=== PATIENT | female | born 2005 | race Caucasian/White ===

== ENCOUNTER 2023-03-03 11:49 | Emergency (ER) | payer OTHER, SELFPAY ==
--- NOTE | ~2023-03-03 | US_ITS ---
EXAMINATION: US PELVIS CLINICAL INFORMATION: Left-sided pelvic pain. Rule out torsion. COMPARISON: None available. TECHNIQUE: Ultrasound of the pelvis is performed using transabdominal transducer along with Doppler. Transvaginal imaging was not performed due to patient declining it. FINDINGS: Uterus: The uterus is anteverted and anteflexed and measures 8.1 x 2.7 x 4.1 cm. The double wall endometrial thickness is 4 mm. The uterus is smooth in contour and has normal myometrial echogenicity. No visible fibroid. Adnexa: Both ovaries are visualized. There is normal color flow to the adnexa. There is no ovarian torsion. There is a small amount of fluid seen within the cul-de-sac. Right ovary measures 2.0 x 2.1 x 1.8 cm. Volume of 4 mL. No abnormal mass. Left ovary measures 3.0 x 2.3 x 3.1 cm. Volume of 11.4 mL. No abnormal mass. Multiple follicular cysts are present. Follow-up for these is not required. US/US pelvic ovarian doppler IMPRESSION: No evidence of ovarian torsion.
--- NOTE | ~2023-03-03 | US_ITS ---
EXAMINATION: US PELVIS CLINICAL INFORMATION: Left-sided pelvic pain. Rule out torsion. COMPARISON: None available. TECHNIQUE: Ultrasound of the pelvis is performed using transabdominal transducer along with Doppler. Transvaginal imaging was not performed due to patient declining it. FINDINGS: Uterus: The uterus is anteverted and anteflexed and measures 8.1 x 2.7 x 4.1 cm. The double wall endometrial thickness is 4 mm. The uterus is smooth in contour and has normal myometrial echogenicity. No visible fibroid. Adnexa: Both ovaries are visualized. There is normal color flow to the adnexa. There is no ovarian torsion. There is a small amount of fluid seen within the cul-de-sac. Right ovary measures 2.0 x 2.1 x 1.8 cm. Volume of 4 mL. No abnormal mass. Left ovary measures 3.0 x 2.3 x 3.1 cm. Volume of 11.4 mL. No abnormal mass. Multiple follicular cysts are present. Follow-up for these is not required. US/US pelvic complete IMPRESSION: No evidence of ovarian torsion.
[2023-03-03 11:52] VITALS: BP 137/90; PULSE 116; RESP 18; TEMP 36.8; O2SAT 98; BMI 23.8
--- NOTE | 2023-03-03 11:53 | ED_ITS ---
HPI - Abdominal Pain General Chief Complaint: Abdominal Pain Stated Complaint: Ovary pain Time Seen by Provider: 03/03/23 13:11 Source: patient and family (Mother) Limitations: no limitations History of Present Illness HPI narrative: 17-year-old female who presents emergency department for evaluation of left lower quadrant/pelvic pain x2 days. The patient states that the pain came on gradually and has been constant but waxes and wanes in intensity since onset. She states that the pain feels like a pulling sensation. The pain got worse last night. She states the pain is 6-7 out 10 at the time of presentation. This is 1st episode of this type of pain. She did not take any pain medications at home. She denied fever, chills, sore throat, cough, chest pain, shortness of breath. She did have associated nausea with no vomiting. She denied frequency, urgency or dysuria. She denied diarrhea, black stools or bloody stools. The patient states that she was getting regular menstrual periods up until July of 2022 when her periods became irregular. She states that her last menstrual period was in October of 2022. She states that this. Was much heavier than her usual periods. She states she is not sexually active. She has not noticed any vaginal discharge. Related Data Allergies Allergy/AdvReac Type Severity Reaction Status Date / Time No Known Allergies Allergy Unverified 06/26/20 17:14 [No Known Allergies*] Review of Systems Review of Systems Yes all other systems are reviewed and are negative [facility] Past Medical History [facility] Narrative: Social history: She denies tobacco use. She denies alcohol use. She denies drug use. She denies being sexually active. Social History Social History Alcohol intake: never Smoked in Last 30 Days: No Use of substances other than those prescribed or required for medical reasons: No Advance Directives: No Advance Directives Information Provided: Yes Physical Exam ED Vital Signs: Vital Signs - 24 hr 03/03/23 11:52 Temperature 98.3 F Pulse Rate 116 H Respiratory Rate 18 Blood Pressure 137/90 H Pulse Oximetry 98 Oxygen Delivery Method Room Air BMI result Body Mass Index 23.8 Const Other: Awake, alert, female patient, pleasant, cooperative no distress, answers all questions appropriately [facility] Head: Yes normal to inspection, Yes normocephalic and Yes atraumatic Ears: external ears normal General nose exam: Normal external nose present Face and sinus: Yes normal facial exam Mouth: Normal oral and palatal mucosa present Throat: Yes posterior oropharynx normal Eyes General: appearance normal, both eyes and all related structures Pupils: Equal, round and reactive pupils present Neck Neck: Yes normal visual inspection, Yes no lymphadenopathy, Yes trachea midline and Yes supple Chest Chest palpation & inspection: normal inspection of the chest and normal palpation of entire chest wall Resp Effort & Inspection: normal respiratory effort and able to speak in complete sentences Auscultation: clear to auscultation bilaterally Cardio Rate: regular rate Rhythm: regular rhythm Heart sounds: S1 normal heart sound present, S2 normal heart sound present and no murmurs GI Inspection: Yes normal to inspection Palpation (GI): Soft to palpation, Tenderness to palpation present (GI) in the LLQ (Today mild) and other (Left lower pelvic tenderness, mild) and no guarding Auscultation: normal bowel sounds General: Yes no CVA tenderness Back/Spine/Pelvis Back: no CVA tenderness Skin General skin exam: no rashes or lesions noted Neuro Cranial nerves: Yes CN's II-XII intact bilaterally and Yes Equal, round and reactive pupils present Cognition (Neuro): normal cognition Motor exam (neuro): 5/5 motor strength present throughout Extrem General: Yes normal to inspection Psych Appearance: grossly normal Speech and movement: Normal speech and movement present Affect: normal affect Attitude: cooperative Course Course Course Narrative: This is a rapid medical exam. Deferred additional HPI, ROS, PE to primary provider. 17 yo female with history of asthma, anxiety here with complaints of left lower abdominal pain w/ cramping, nausea yesterday. No urinary symptoms, constipation, diarrhea, vaginal discharge. Has had irregular menses since August, absent period for 4 months, not s exually active. Will obtain labs, UA, pelvic US. Medical Decision Making Medical Decision Making MDM Narrative: 17-year-old female who presents emergency department for evaluation of left lower quadrant/pelvic pain x2 days. Patient had associated nausea with no other significant symptoms. The patient has had a change in her menses over the last 6 months with her last normal menstrual period being October 2022. Patient is not sexually active. Exam did reveal left lower quadrant and left pelvic tenderness. The following tests were ordered: CBC, CMP, urine test, urinalysis, ultrasound of the pelvis and transvaginal ultrasound to rule out torsion/ovarian cyst. My interpretation patient's laboratory evaluation is as follows: CBC, CMP, urinalysis, urine test all normal. Duplex ultrasound of the patient's ovaries revealed multiple follicular cysts in the left ovary with no significant ovarian cyst or evidence for torsion. This time I do not have a clear etiology for the patient's pain, it is possible she may have had an ovarian cyst that ruptured. I did discuss this with the patient and the patient's mother. Patient was advised to take ibuprofen 40 mg 3 times a day for the next 4 days and then as needed for pain, she is also advised to take extra-strength Tylenol 500 mg every 6 hours as needed for pain. She will be referred to our freezer laboratory technician to further workup or change in her menstrual periods. Differential Diagnosis Differential diagnosis includes but is not limited to ovarian cyst, ruptured ovarian cyst, hemorrhagic ovarian cyst, ovarian torsion, related pain Lab Data MDM Lab Attestation statement: I reviewed the patient's lab results. 03/03/23 12:14 03/03/23 12:14 Labs: Lab Results 03/03/23 03/03/23 03/03/23 Range/Units 12:12 12:12 12:14 WBC 7.1 (4.8-10.8) X10*3/uL RBC 4.84 (4.20-5.50) X10*6/uL Hgb 13.7 (12.0-16.0) g/dl Hct 41.0 (37.0-47.0) % MCV 84.7 (80.0-98.0) fL MCH 28.3 (27.0-33.0) pg MCHC 33.4 (31.0-35.0) g/dl RDW 11.9 (11.0-16.0) % Plt Count 207 (160-400) X10*3/uL MPV 10.3 (9.4-12.3) fL Immature Gran % (Auto) 0.1 (0.0-0.4) % Neut % (Auto) 57.8 (45-73) % Lymph % (Auto) 31.4 (20-40) % Crisp % (Auto) 6.6 (2-11) % Eos % (Auto) 3.5 (0-4) % Baso % (Auto) 0.6 (0-2) % Lymph # (Auto) 2.2 (1.2-4.9) X10*3/uL Crisp # (Auto) 0.5 (0.1-1.2) X10*3/uL Eos # (Auto) 0.3 (0.0-0.4) X10*3/uL Baso # (Auto) 0.0 (0.0-0.2) X10*3/uL Abs Immat Gran (auto) 0.01 (0.00-0.03) X10*3/uL Absolute Neuts (auto) 4.1 (2.0-8.3) x10*3/uL Absolute Nucleated RBC 0.000 (0.0-0.012) X10*3/uL Nucleated RBC % (auto) 0.0 (0.0-0.2) /100WBC Sodium (135-145) mmol/L Potassium (3.3-5.1) mmol/L Chloride (96-108) mmol/L Carbon Dioxide (22-29) mmol/L Anion Gap (12-20) BUN (9-16) mg/dL Creatinine (0.5-1.4) mg/dL Estim Creat Clear Calc Estimated GFR Random Glucose (60-115) mg/dL Calcium (8.4-10.2) mg/dL Total Bilirubin (0.0-1.0) mg/dL Direct Bilirubin (0.0-0.5) mg/dL AST (5-31) U/L ALT (0-31) U/L Alkaline Phosphatase (39-117) U/L Total Protein (6.5-8.0) g/dL Albumin (3.5-5.0) g/dL Urine Color Yellow Urine Appearance Cloudy Urine pH 8.0 (5.0-9.0) Ur Specific Lee 1.025 (1.005-1.025) Urine Protein Trace (Neg-Trace) mg/dL Urine Glucose (UA) Negative (Negative) mg/dL Urine Ketones Trace (Negative) mg/dL Urine Blood Negative (Negative) Urine Nitrite Negative (Negative) Ur Leukocyte Esterase Trace H (Negative) Urine RBC 0-2 (0-2) /HPF Urine WBC 0-5 (0-5) /HPF Ur Squamous Epith Cells 6-10 (0-2) /HPF Urine Bacteria 1+ (None Seen) Hyaline Casts 0-2 (0-2) /LPF Urine Test NEGATIVE (NEGATIVE) 03/03/23 Range/Units 12:14 WBC (4.8-10.8) X10*3/uL RBC (4.20-5.50) X10*6/uL Hgb (12.0-16.0) g/dl Hct (37.0-47.0) % MCV (80.0-98.0) fL MCH (27.0-33.0) pg MCHC (31.0-35.0) g/dl RDW (11.0-16.0) % Plt Count (160-400) X10*3/uL MPV (9.4-12.3) fL Immature Gran % (Auto) (0.0-0.4) % Neut % (Auto) (45-73) % Lymph % (Auto) (20-40) % Crisp % (Auto) (2-11) % Eos % (Auto) (0-4) % Baso % (Auto) (0-2) % Lymph # (Auto) (1.2-4.9) X10*3/uL Crisp # (Auto) (0.1-1.2) X10*3/uL Eos # (Auto) (0.0-0.4) X10*3/uL Baso # (Auto) (0.0-0.2) X10*3/uL Abs Immat Gran (auto) (0.00-0.03) X10*3/uL Absolute Neuts (auto) (2.0-8.3) x10*3/uL Absolute Nucleated RBC (0.0-0.012) X10*3/uL Nucleated RBC % (auto) (0.0-0.2) /100WBC Sodium 141 (135-145) mmol/L Potassium 3.8 (3.3-5.1) mmol/L Chloride 108 (96-108) mmol/L Carbon Dioxide 24 (22-29) mmol/L Anion Gap 13 (12-20) BUN 13 (9-16) mg/dL Creatinine 0.84 (0.5-1.4) mg/dL Estim Creat Clear Calc 85.2 Estimated GFR > 60 Random Glucose 88 (60-115) mg/dL Calcium 9.7 (8.4-10.2) mg/dL Total Bilirubin 0.8 (0.0-1.0) mg/dL Direct Bilirubin 0.2 (0.0-0.5) mg/dL AST 19 (5-31) U/L ALT 16 (0-31) U/L Alkaline Phosphatase 92 (39-117) U/L Total Protein 7.4 (6.5-8.0) g/dL Albumin 4.6 (3.5-5.0) g/dL Urine Color Urine Appearance Urine pH (5.0-9.0) Ur Specific Lee (1.005-1.025) Urine Protein (Neg-Trace) mg/dL Urine Glucose (UA) (Negative) mg/dL Urine Ketones (Negative) mg/dL Urine Blood (Negative) Urine Nitrite (Negative) Ur Leukocyte Esterase (Negative) Urine RBC (0-2) /HPF Urine WBC (0-5) /HPF Ur Squamous Epith Cells (0-2) /HPF Urine Bacteria (None Seen) Hyaline Casts (0-2) /LPF Urine Test (NEGATIVE) Radiology Impression Discussion of test interpretation with radiology: I have reviewed the radiologist's reading. Radiologist Impression: EXAMINATION: US PELVIS CLINICAL INFORMATION: Left-sided pelvic pain. Rule out torsion. COMPARISON: None available. TECHNIQUE: Ultrasound of the pelvis is performed using transabdominal transducer along with Doppler. Transvaginal imaging was not performed due to patient declining it. FINDINGS: Uterus: The uterus is anteverted and anteflexed and measures 8.1 x 2.7 x 4.1 cm. The double wall endometrial thickness is 4 mm. The uterus is smooth in contour and has normal myometrial echogenicity. No visible fibroid. Adnexa: Both ovaries are visualized. There is normal color flow to the adnexa. There is no ovarian torsion. There is a small amount of fluid seen within the cul-de-sac. Right ovary measures 2.0 x 2.1 x 1.8 cm. Volume of 4 mL. No abnormal mass. Left ovary measures 3.0 x 2.3 x 3.1 cm. Volume of 11.4 mL. No abnormal mass. Multiple follicular cysts are present. Follow-up for these is not required. US/US pelvic complete IMPRESSION: No evidence of ovarian torsion. Dictated By:Brian Dash MD Independent Historian Clinical information obtained from an independent historian. History obtained from or confirmed by: Parent Medications Administered Discontinued Medications Generic Name Dose Route Start Last Admin Trade Name Freq PRN Reason Stop Dose Admin Ibuprofen 400 mg 03/03/23 14:54 03/03/23 15:07 Ibuprofen 400 Mg Tablet PO 03/03/23 14:55 400 mg ONCE ONE Administration Discharge Plan Discharge Clinical Impression: Acute left lower quadrant pain Patient Disposition: Home, Self-Care Referrals: Steven Méndez MD [Physician] - 2 weeks Interventions: ED Discharge Assessment Last Done: 03/03/23 15:52 Discharge Date/Time: 03/03/23 15:54
[2023-03-03 12:19] LABS: MANUAL DIFF FLAG NO
[2023-03-03 12:25] LABS: Basophils Percent Auto 0.6 % (0-2); Eosinophils Absolute Auto 0.3 X10*3/uL (0.0-0.4); Eosinophils Percent Auto 3.5 % (0-4); Hemoglobin 13.7 g/dl (12.0-16.0); Imm Gran Abs Auto 0.01 X10*3/uL (0.00-0.03); Imm Gran Pct Auto 0.1 % (0.0-0.4); Lymphocytes Absolute Auto 2.2 X10*3/uL (1.2-4.9); Lymphocytes Percent Auto 31.4 % (20-40); Mean Corpuscular HGB Conc 33.4 g/dl (31.0-35.0); Mean Corpuscular Hemoglobin 28.3 pg (27.0-33.0); Mean Corpuscular Volume 84.7 fL (80.0-98.0); Mean Platelet Volume 10.3 fL (9.4-12.3); Monocytes Absolute Auto 0.5 X10*3/uL (0.1-1.2); Monocytes Percent Auto 6.6 % (2-11); Neutrophils Absolute Auto 4.1 x10*3/uL (2.0-8.3); Neutrophils Percent Auto 57.8 % (45-73); Platelet Count 207 X10*3/uL (160-400); Red Blood Count 4.84 X10*6/uL (4.20-5.50); Red Cell Distribution Width 11.9 % (11.0-16.0); White Blood Count 7.1 X10*3/uL (4.8-10.8)
[2023-03-03 12:27] LABS: Appearance Urine Cloudy; Color Urine Yellow; Glucose Urine UA Negative (Negative); Leukocyte Esterase Urine Trace (Negative); Nitrite Urine Negative (Negative); Specific Gravity - Urine 1.025 (1.005-1.025); UMIC TRIGGER UACC YES; Urine Blood Negative (Negative); Urine Ketones Trace mg/dL (Negative); Urine Protein Trace mg/dL (Neg-Trace)
[2023-03-03 12:29] LABS: UPreg QC Valid YES; Urine Pregnancy NEGATIVE (NEGATIVE)
[2023-03-03 12:35] LABS: Bacteria Urine 1+ (None Seen); Hyaline Casts Urine 0-2 /LPF (0-2); RBC Urine 0-2 /HPF (0-2); WBC Urine 0-5 /HPF (0-5)
[2023-03-03 12:52] LABS: Alanine Aminotransferase 16 U/L (0-31); Albumin Level 4.6 g/dL (3.5-5.0); Alkaline Phosphatase 92 U/L (39-117); Anion Gap 13 (12-20); Aspartate Amino Transferase 19 U/L (5-31); Bilirubin Direct 0.2 mg/dL (0.0-0.5); Bilirubin Total 0.8 mg/dL (0.0-1.0); Blood Urea Nitrogen 13 mg/dL (9-16); Calcium 9.7 mg/dL (8.4-10.2); Carbon Dioxide 24 mmol/L (22-29); Chloride 108 mmol/L (96-108); Creatinine Clr Calc Pharmacy 85.2; Estimated Glomerular Filt Rate > 60; Glucose Random 88 mg/dL (60-115); Potassium 3.8 mmol/L (3.3-5.1); Sodium 141 mmol/L (135-145); Total Protein 7.4 g/dL (6.5-8.0)
--- NOTE | 2023-03-03 14:51 | PC.NURSE ---
Alert and oriented. Arrived from home via ems accompanied by her mom. States 2 days ago she started with left ovary pain. States pain is 6/10 but sometimes is worse and sometimes gets better. Last bm two days ago. Urinating without pain or discomfort. States has had irregular periods since jul 2022. States last period oct 2022. no sob or chest pain.
[2023-03-03] MEDS: Ibuprofen 400 MG TABLET PO (15:07)
--- NOTE | 2023-03-03 15:52 | PC.NURSE ---
Alert and oriented. Provider reviewed lab work and ultrasound with patient and mom. states they will follow up with pcp and permastone mechanic. States pain is much imrpoved.
== END 2023-03-03 15:54 | disposition home or self-care (01) ==
PROVIDERS: Nurse Practitioner Family; Emergency Provider Emergency Medicine Emergency Medical Services; PCP Nurse Practitioner Pediatrics
DX: R10.32 Left lower quadrant pain (principal); R10.2 Pelvic and perineal pain; Z79.899 Other long term (current) drug therapy
CPT/HCPCS: 36415; 76856; 80048; 80076; 81001; 81025; 85025; 93975; 99284

== ENCOUNTER → 2023-03-24 14:39 | Outpatient (BNVA) | payer OTHER, SELFPAY | PROVIDERS: PCP Nurse Practitioner Pediatrics; Visit Provider Advanced Practice Midwife | DX: N91.1 Secondary amenorrhea (principal); R63.4 Abnormal weight loss | CPT/HCPCS: 99202 ==